=== PATIENT | male | born 1985 | race African-American/Black ===

== ENCOUNTER 2016-06-25 17:06 | Emergency (ER) | payer OTHER ==
--- NOTE | ~2016-06-25 | CT4 ---
[facility] A Service of [facility] RADIOLOGY TEXT RESULTS PATIENT: SEMAJ KELLEY LOCATION: [place] : 86 UNIT #: [id number] AGE: [address]: Efren Shi SEX: M ORDER DR: [id number] [facility]. [place], [place] [address] [id number] MR#: [id number] Acc #: [id number] NAME: SEMAJ KELLEY : 1985 SEX: M STUDY DATE/TIME: 06/25/2016 16:37 UNIT: CFTX ROOM: STUDY DESCRIPTION: CT Abd and Pelv Wo Cont Attending Physician: Efren Shi Ordering Physician: Ed Jerrell Arellano M.D. Primary Care Physician: Primary Care Physician No MEDICAL IMAGING REPORT This report is preliminary unless electronic signature is present EXAM CT abdomen and pelvis without contrast, 06/25/2016 INDICATIONS Severe generalized abdominal pain since 03:00 a.m. today. PROCEDURE Unenhanced CT of the abdomen and pelvis. TECHNIQUE This CT exam was performed with one or more of the following radiation dose reduction techniques: automatic exposure control, adjustment of mA and/or kV according to patient size, and iterative reconstruction. COMPARISON 05/26/2016 FINDINGS ABDOMEN WITHOUT CONTRAST: Included lung bases clear. Liver, spleen, kidneys, adrenal glands, gallbladder show no acute abnormality. Bowel loops are nondilated. Pancreas is expanded and edematous with some peripancreatic inflammatory change. There is scattered fluid in the abdomen extending into the pelvis. PELVIS WITHOUT CONTRAST: No pelvic mass. No aggressive-appearing bone lesion. IMPRESSION Acute pancreatitis similar in severity to 05/26/2016. [facility] A Service of [facility] RADIOLOGY TEXT RESULTS PATIENT: SEMAJ KELLEY LOCATION: [place] : [birth year] UNIT #: [id number] AGE: [address]: Efren Shi SEX: M ORDER DR: Dictated by... Hal Law M.D. THIS IS AN ELECTRONICALLY VERIFIED REPORT Hal Law M.D. at 06/27/2016 7:15 AM BEV/remberto TD: 06/25/2016 22:02 JOB #: [id number] MEDICAL IMAGING REPORT Page 1 of 1 COPY
[2016-06-25 16:32] LABS: URINE SOURCE CLEAN CATCH
[2016-06-25 16:36] LABS: BASOPHIL% 0.2 % (0-2.5); DIFF IND NO; EOSINOPHIL# 0.1 X10e3 (0-0.7); EOSINOPHIL% 0.5 % (0.0-7.0); HEMATOCRIT 48.6 % (38.0-50.0); HEMOGLOBIN 15.8 gm/dL (13.0-16.0); LYMPHOCYTE% 6.8 % (17.0-45.0); MEAN CELL VOLUME 97.3 FL (83-96); MEAN CORPUSCULAR HEMOGLOBIN 31.6 PG (28-34); MEAN CORPUSCULAR HGB CONC 32.5 g/dL (30-36); MEAN PLATELET VOLUME 9.1 FL (6.5-11.5); MONOCYTE# 0.9 X10e3 (0-1.0); MONOCYTE% 6.1 % (3.0-12.0); NEUTROPHIL# 12.1 X10e3 (1.5-7.1); NEUTROPHIL% 86.4 % (40-75); PLATELET COUNT 268 X10e3 (140-420); RED CELL DISTRIBUTION WIDTH 13.6 % (11.0-15.5); WHITE BLOOD COUNT 14.1 X10e3 (4.0-10.5)
[2016-06-25 16:37] LABS: URINE APPEARANCE CLEAR; URINE BILIRUBIN NEG (NEG); URINE BLOOD NEG (NEG); URINE COLOR YELLOW; URINE GLUCOSE NEG (NEG); URINE KETONE TRACE (NEG); URINE LEUKOCYTE ESTERASE NEG (NEG); URINE NITRATE NEG (NEG); URINE PH 6.5 (5-8); URINE PROTEIN NEG (NEG); URINE SPECIFIC GRAVITY 1.024 (1.003-1.035); URINE UROBILINOGEN 0.2 MG/DL (NEG)
[2016-06-25 17:02] LABS: CULTURE INDICATED? NO
[~2016-06-25 17:06] MED LIST: FOLIC ACID1 MG PO; MULTI-VITAMIN1 EAC1 PO; THIAMINE HCL100 M2 PO
[2016-06-25 17:15] LABS: ALKALINE PHOSPHATASE 82 U/L (32-92); ALT (SGPT) 29 U/L (10-40); AST (SGOT) 34 U/L (10-42); BILIRUBIN, DIRECT 0.1 mg/dL (0.0-0.2); BILIRUBIN,INDIRECT 0.7 mg/dL (0.0-0.9); BILIRUBIN,TOTAL 0.8 mg/dL (0.2-2.0); BLOOD UREA NITROGEN 5 mg/dL (9-23); BUN/CREATININE RATIO 8.33; CALCIUM SERUM 9.8 mg/dL (8.4-10.2); CARBON DIOXIDE 28 mmol/L (22-31); CHLORIDE 98 mmol/L (100-111); CREATININE SERUM 0.6 mg/dL (0.6-1.4); GLOM FILT RATE Estimated ABOVE60 mL/min (>60); GLUCOSE FASTING 116 mg/dL (70-110); LIPASE 364 U/L (22-51); POTASSIUM 3.8 mmol/L (3.5-5.1); PROTEIN TOTAL SERUM 8.5 g/dL (6.0-8.3); SODIUM 136 mmol/L (135-145)
== END 2016-06-25 18:37 | disposition home or self-care (01) ==
LOC: CFTX 17:06
DX: K85.90 Acute pancreatitis without necrosis or infection, unspecified (principal); R03.0 Elevated blood-pressure reading, without diagnosis of hypertension; F17.200 Nicotine dependence, unspecified, uncomplicated
CPT/HCPCS: 36415; 74176; 80048; 80076; 81003; 83690; 85025; 96361; 96374; 96375; 99284; J1170; J2270; J2405

== ENCOUNTER 2016-08-27 14:27 | Inpatient (IN) | payer MEDICAID ==
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
--- NOTE | ~2016-08-27 | CO ---
Unit #: [id number] #: [id number] Patient: DANIEL KELLEY [id number] [address] [address] [id number] MR#: [id number] NAME: DANIEL KELLEY ROOM: 471 Age: 30 Sex: M Admission Date: 08/27/2016 : 1985 Attending Physician: Maribel Haro M.D. Consultation Date: 08/29/2016 CONSULTATION REPORT REASON FOR CONSULTATION Followup. DISCUSSION Mr. Daniel Kelley is a 30-year-old male, seen in room 471, bed 1 on 08/29/2016 at [facility]. The patient reports that he is feeling better and looking forward to go home. Reports medication helped him with his anxiety. The patient is tolerating medication fairly well. Denied any side effects from medication. Denied any suicidal or homicidal ideation. Denied any psychotic symptom. Vital signs; temperature 97.6, pulse 71, respirations 16, blood pressure 104/50, oxygen saturation 93%. REVIEW OF SYSTEMS Complete review of systems unremarkable. MENTAL STATUS EXAMINATION General appearance, the patient dressed casually, lying comfortably in bed. Made good eye contact. Attention span and concentration, fair. Speech, regular rate and coherent. Oriented in time, place, and person. Mood and affect, sad, dysphoric, flat, anxious. Thought process, coherent. Thought content, the patient denied any thoughts of harming self or others, but guarded. Denied any hallucination. Recent and remote memory, fair. Language, intact. Fund of knowledge, fair. Insight and judgment, fair to slightly impaired. DIAGNOSES Psychiatric: Major depressive disorder, recurrent, severe, F33.2; alcohol use disorder, moderate to severe, F10.20; posttraumatic stress disorder, chronic, F43.12. ASSESSMENT/PLAN 1. Supportive psychotherapy and psychoeducation provided to the patient. 2. Educated about benefits and side effects of medication and course and prognosis of illness. 3. Advised to continue with current medication with a plan [facility]. The patient was given telephone #[phone]. Dictated by..Saul Salazar M.D. [facility] Unit #: [id number] #: [id number] Patient: DANIEL KELLEY TD: 08/30/2016 14:02 JOB #: [id number] CONSULTATION REPORT Page 1 of 1 X Darrius Salazar MD CONSULTATION REPORT
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
[2016-08-27 15:12] LABS: BASOPHIL# 0.1 X10e3 (0-0.3); BASOPHIL% 0.5 % (0-2.5); EOSINOPHIL# 0.2 X10e3 (0-0.7); EOSINOPHIL% 1.1 % (0.0-7.0); HEMATOCRIT 50.2 % (38.0-50.0); HEMOGLOBIN 16.1 gm/dL (13.0-16.0); LYMPHOCYTE# 1.3 X10e3 (1.0-3.5); LYMPHOCYTE% 9.8 % (17.0-45.0); MEAN CORPUSCULAR HEMOGLOBIN 31.7 PG (28-34); MEAN PLATELET VOLUME 9.4 FL (6.5-11.5); MONOCYTE# 0.7 X10e3 (0-1.0); MONOCYTE% 4.9 % (3.0-12.0); NEUTROPHIL# 11.1 X10e3 (1.5-7.1); NEUTROPHIL% 83.7 % (40-75); PLATELET COUNT 254 X10e3 (140-420); RED BLOOD COUNT 5.07 X10e (3.90-5.60); RED CELL DISTRIBUTION WIDTH 13.3 % (11.0-15.5); WHITE BLOOD COUNT 13.3 X10e3 (4.0-10.5)
[2016-08-27 15:13] LABS: DIFF IND NO
[2016-08-27 16:13] LABS: ALBUMIN SERUM 5.1 g/dL (3.5-5.0); BILIRUBIN, DIRECT 0.1 mg/dL (0.0-0.2); BILIRUBIN,INDIRECT 0.4 mg/dL (0.0-0.9); BILIRUBIN,TOTAL 0.5 mg/dL (0.2-2.0); BUN/CREATININE RATIO 8.75; CALCIUM SERUM 9.6 mg/dL (8.4-10.2); CREATININE SERUM 0.8 mg/dL (0.6-1.4); POTASSIUM 4.2 mmol/L (3.5-5.1); PROTEIN TOTAL SERUM 8.9 g/dL (6.0-8.3)
[2016-08-27 19:46] LABS: URINE SOURCE CLEAN CATCH
[2016-08-27 19:50] LABS: URINE APPEARANCE CLEAR; URINE BILIRUBIN NEG (NEG); URINE BLOOD NEG (NEG); URINE COLOR YELLOW; URINE GLUCOSE NEG (NEG); URINE KETONE TRACE (NEG); URINE LEUKOCYTE ESTERASE NEG (NEG); URINE NITRATE NEG (NEG); URINE PROTEIN TRACE (NEG); URINE SPECIFIC GRAVITY 1.021 (1.003-1.035)
[2016-08-27 20:01] LABS: CULTURE INDICATED? NO
[2016-08-27 20:05] LABS: AMPHETAMINE NEG (NEG); BARBITURATES NEG (NEG); BENZODIAZEPINES POS (NEG); COCAINE NEG (NEG); MARIJUANA NEG (NEG); OPIATES NEG (NEG); TRICYCLIC ANTIDEPRESSANTS NEG (NEG); U METHADONE NEG (NEG)
[2016-08-27] MEDS ORDERED: NO MEDICATIONS (23:30)
[2016-08-28 04:14] LABS: BASOPHIL% 0.4 % (0-2.5); DIFF IND NO; EOSINOPHIL% 0.3 % (0.0-7.0); HEMATOCRIT 44.2 % (38.0-50.0); HEMOGLOBIN 14.5 gm/dL (13.0-16.0); LYMPHOCYTE# 1.1 X10e3 (1.0-3.5); LYMPHOCYTE% 9.3 % (17.0-45.0); MEAN CELL VOLUME 98.3 FL (83-96); MEAN CORPUSCULAR HEMOGLOBIN 32.3 PG (28-34); MEAN CORPUSCULAR HGB CONC 32.8 g/dL (30-36); MEAN PLATELET VOLUME 9.4 FL (6.5-11.5); MONOCYTE# 0.7 X10e3 (0-1.0); MONOCYTE% 6.3 % (3.0-12.0); NEUTROPHIL# 9.8 X10e3 (1.5-7.1); NEUTROPHIL% 83.7 % (40-75); PLATELET COUNT 204 X10e3 (140-420); RED BLOOD COUNT 4.49 X10e (3.90-5.60); RED CELL DISTRIBUTION WIDTH 12.9 % (11.0-15.5); WHITE BLOOD COUNT 11.7 X10e3 (4.0-10.5)
[2016-08-28 04:25] LABS: PARTIAL THROMBOPLASTIN TIME 31.7 SECONDS (23.5-31.3); PROTHROMBIN TIME (PATIENT) 10.4 SECONDS (9.6-11.5)
[2016-08-28 04:51] LABS: ALBUMIN SERUM 4.3 g/dL (3.5-5.0); CALCIUM SERUM 8.7 mg/dL (8.4-10.2); CREATININE SERUM 0.7 mg/dL (0.6-1.4); GLOM FILT RATE Estimated 147.9 mL/min (>60); POTASSIUM 4.3 mmol/L (3.5-5.1); PROTEIN TOTAL SERUM 7.5 g/dL (6.0-8.3)
[2016-08-29 02:10] LABS: BASOPHIL% 0.4 % (0-2.5); EOSINOPHIL# 0.3 X10e3 (0-0.7); EOSINOPHIL% 3.8 % (0.0-7.0); HEMATOCRIT 38.1 % (38.0-50.0); HEMOGLOBIN 12.6 gm/dL (13.0-16.0); LYMPHOCYTE# 1.2 X10e3 (1.0-3.5); LYMPHOCYTE% 16.4 % (17.0-45.0); MEAN CELL VOLUME 98.7 FL (83-96); MEAN CORPUSCULAR HEMOGLOBIN 32.7 PG (28-34); MEAN CORPUSCULAR HGB CONC 33.1 g/dL (30-36); MEAN PLATELET VOLUME 9.4 FL (6.5-11.5); MONOCYTE# 0.8 X10e3 (0-1.0); MONOCYTE% 10.5 % (3.0-12.0); NEUTROPHIL# 5.1 X10e3 (1.5-7.1); NEUTROPHIL% 68.9 % (40-75); PLATELET COUNT 177 X10e3 (140-420); RED BLOOD COUNT 3.86 X10e (3.90-5.60); RED CELL DISTRIBUTION WIDTH 12.7 % (11.0-15.5); WHITE BLOOD COUNT 7.5 X10e3 (4.0-10.5)
[2016-08-29 02:11] LABS: DIFF IND NO
[2016-08-29 02:37] LABS: ALBUMIN SERUM 3.7 g/dL (3.5-5.0); BILIRUBIN,TOTAL 1.1 mg/dL (0.2-2.0); BUN/CREATININE RATIO 7.14; CALCIUM SERUM 8.7 mg/dL (8.4-10.2); CREATININE SERUM 0.7 mg/dL (0.6-1.4); GLOM FILT RATE Estimated 147.9 mL/min (>60); POTASSIUM 4.5 mmol/L (3.5-5.1); PROTEIN TOTAL SERUM 6.9 g/dL (6.0-8.3)
[2016-08-29] MEDS ORDERED: CELEXA20 MG PO (13:04)
[2016-08-29] MEDS ORDERED: DOXEPIN HCL50 M1 PO (13:05)
[2016-08-29] MEDS ORDERED: ONDANSETRON HCL4 M1 PO (13:06)
[2016-08-29] MEDS ORDERED: NICOTINE TRANSD14 MG TD (13:08)
[2016-08-29] MEDS ORDERED: MINIPRESS1 MG PO (13:08)
[2016-08-29] MEDS ORDERED: THERAPEUTIC VI1 EACH PO (13:10)
[2016-08-29] MEDS ORDERED: HYDROCODON-ACE1 EAC7 PO (13:12)
[2016-08-29] MEDS ORDERED: THIAMINE HCL100 M2 PO (13:12)
== END 2016-08-29 14:45 | disposition home or self-care (01) | DRG 439 ==
LOC: CED 14:27 → C4C 21:30 → CEDOF 21:30 → CED 21:34 → C4C 22:55 → CEDOF 22:55 → C4C 08-28 07:54
PROVIDERS: Emergency Medicine; Internal Medicine
DX: K85.20 Alcohol induced acute pancreatitis without necrosis or infection (principal); F33.2 Major depressive disorder, recurrent severe without psychotic features; E87.1 Hypo-osmolality and hyponatremia; I16.9 Hypertensive crisis, unspecified; Z68.1 Body mass index [BMI] 19.9 or less, adult; F17.210 Nicotine dependence, cigarettes, uncomplicated; F10.20 Alcohol dependence, uncomplicated; F43.12 Post-traumatic stress disorder, chronic; F41.9 Anxiety disorder, unspecified; R63.6 Underweight
CPT/HCPCS: 80048; 80053; 80076; 80307; 81003; 82150; 83690; 85025; 85610; 85730; 96361; 96374; 96375; 99285; J1170; J2270; J2405; J3411